=== PATIENT | male | born 1980 | race African-American/Black ===

== ENCOUNTER 2022-02-04 12:24 | Emergency (ER) | payer MEDICAID ==
[~2022-02-04] VITALS: Ht 180.3 cm; Wt 131.0 kg
[2022-02-04 12:31] VITALS: BP 145/90
[2022-02-04] MEDS ORDERED: ACETAMINOPHEN 325MG TABLET PO ONE (13:30)
[2022-02-04] MEDS ORDERED: TOPUD MT (16:16)
== END 2022-02-04 17:29 | disposition home or self-care (01) ==
LOC: ER 12:24
DX: M25.561 Pain in right knee (principal); I10 Essential (primary) hypertension
CPT/HCPCS: 73560; 93971; 99284